=== PATIENT | female | born 1975 | race Caucasian/White ===

== ENCOUNTER 2020-02-18 06:52 | Emergency (ER) | payer MEDICAID ==
[~2020-02-18] VITALS: Ht 160 cm; Wt 71.0 kg
--- NOTE | 2020-02-18 07:30 | NUR ---
CONTACT WITH PT, 44 YR OLD FEMALE HERE WITH C/O "I HAVE LEFT FLANK PAIN FOR AWHILE, MONTHS. I HAVE A KIDNEY INFECTION. I HAVE BEEN TREATED WITH MACROBID FOR A UTI AND LAST WEDNESDAY I WENT IN AND THEY GAVE ME CEFDINIR" DR BOLDEN IN TO [facility]. PT ABLE TO PROVIDE URINE SPECIMAN.
--- NOTE | 2020-02-18 08:10 | NUR ---
PT AMB TO BR, GAIT STEADY. DICTATING MACHINE MECHANIC AT BEDSIDE TO DRAW LABS. PT CONT TO USE HEATING PAD FOR "COMFORT" NO NEEDS EXPRESSED AT THIS TIME.
--- NOTE | 2020-02-18 08:20 | NUR ---
PT PROVIDED HOT PACK REQUESTED. PT WAS INSTRUCTED ON USE AND INSTRUCTED NOT TO APPLY HOT PACK DIRECTLY TO SKIN.
[2020-02-18 08:27] LABS: BASOPHILS % (AUTO) 0 % (0-1); EOSINOPHILS % (AUTO) 2 % (1-7); LYMPHOCYTES % (AUTO) 19 % (22-44); MEAN CORPUSCULAR HGB CONC 33.8 g/dL (32.4-35.8); MEAN PLATELET VOLUME 9.1 fL (7.4-10.4); MONOCYTES % (AUTO) 5 % (2-9); NEUTROPHILS % (AUTO) 74 % (42-75); PLATELET COUNT 223 x10^3/uL (130-400)
[2020-02-18 08:29] LABS: HCG UR SG 1.022 (1.003-1.030); MICROSCOPIC AUTO
[2020-02-18 08:33] LABS: ALANINE AMINOTRANSFERASE 214 U/L (12-78); ALBUMIN 3.8 g/dL (3.4-5.0); ANION GAP 5 mmol/L (5-15); CALCIUM 8.7 mg/dL (8.5-10.1); CHLORIDE 108 mmol/L (98-107); CREATININE 0.83 mg/dL (0.55-1.02)
[2020-02-18 08:35] LABS: ALKALINE PHOSPHATASE 88 U/L (45-117); BILIRUBIN,TOTAL 0.5 mg/dL (0.2-1.0); TOTAL PROTEIN 7.3 g/dL (6.4-8.2)
[2020-02-18 08:39] LABS: MD NO
--- NOTE | 2020-02-18 09:00 | NUR ---
REPORT TO HANSA Wagner RN
[2020-02-18 09:09] VITALS: BP 96/56
== END 2020-02-18 10:39 | disposition home or self-care (01) ==
LOC: ED 09:05
DX: N30.01 Acute cystitis with hematuria (principal); R10.12 Left upper quadrant pain; R10.32 Left lower quadrant pain
CPT/HCPCS: 36415; 74176; 80053; 81001; 81025; 85025; 99284

== ENCOUNTER 2020-02-26 18:31 | Emergency (ER) | payer MEDICAID ==
[~2020-02-26] VITALS: Ht 160 cm; Wt 67.6 kg
--- NOTE | 2020-02-26 19:31 | NUR ---
PT TO RESTROOM, STEADY GAIT
--- NOTE | 2020-02-26 19:31 | NUR ---
pt to room from lobby
--- NOTE | 2020-02-26 19:39 | NUR ---
CC OF WALKING DOG FEW WEEKS AGO AND TRIPPING WHEN DOG WAS TRIGGERED BY CAT AND FALLING DOWN STAIRS A COUPLE WEEKS AGO AND RECENTLY GOT OVER BAD KIDNEY INFECTION. COMPLAINTS OF HARD TIME GETTING IN AND OUT OF BATH AND SHOWER. PAIN IN LEFT HIP AND FEMUR. HAS METAL FENG AND STATES SHE DOES NOT HAVE CORRECT RANGE OF MOTION. DENIES GOING TO PHYSICAL THERAPY
[2020-02-26] MEDS ORDERED: METHOCARBAMOL 750 MG TABLET ONE (19:50)
[2020-02-26] MEDS ORDERED: KETOROLAC 30 MG/1 ML ONE (19:50)
[2020-02-26 19:54] VITALS: BP 97/58
[2020-02-26 19:58] LABS: MICROSCOPIC NOT IND
[2020-02-26] MEDS ORDERED: METHOCARBAMOL 750 MG TABLET PO ONE (20:00)
[2020-02-26] MEDS ORDERED: KETOROLAC 30 MG/1 ML IM ONE (20:00)
--- NOTE | 2020-02-26 20:27 | NUR ---
TASK RN: DC EDUCATION PROVIDED, PT DEMONSTRATES UNDERSTANDING. PT AMBULATED STEADILY TO DC. FRIEND TO TRANSPORT PT HOME.
== END 2020-02-26 20:30 | disposition home or self-care (01) ==
LOC: ED 20:20
DX: G89.29 Other chronic pain (principal); M25.552 Pain in left hip
CPT/HCPCS: 81003; 96372; 99283; J1885